=== PATIENT | female | born 1950 | race Caucasian/White ===

== ENCOUNTER 2023-10-30 12:41 | Inpatient (IN) | payer MEDICARE ==
[~2023-10-30] VITALS: Ht 152.4 cm; Wt 59.0 kg
[2023-10-30 13:29] LABS: BASOPHILS % (AUTO) 0.7 % (0.0-2.0); EOSINOPHILS % (AUTO) 0.5 % (0.0-7.0); HEMOGLOBIN 10.5 g/dL (10.9-14.3); LYMPHOCYTES # (AUTO) 1.2 K/uL (0.8-4.8); LYMPHOCYTES % (AUTO) 17.3 % (20.5-51.5); MEAN CORPUSCULAR HEMOGLOBIN 25.9 uug (24.7-32.8); MEAN CORPUSCULAR HGB CONC 33 g/dL (32.3-35.6); MEAN CORPUSCULAR VOLUME 79.3 fL (75.5-95.3); MONOCYTES # (AUTO) 0.4 K/uL (0.1-1.30); MONOCYTES % (AUTO) 5.5 % (0.0-11.0); NEUTROPHILS # (AUTO) 5.1 K/uL (1.8-8.9); PLATELET COUNT (AUTO) 343 K/uL (179-408); RED BLOOD CELL COUNT(AUTO) 4.04 MIL/uL (3.63-4.92); RED CELL DISTRIBUTION WIDTH 16.5 % (12.3-17.7); WHITE BLOOD COUNT (AUTO) 6.8 K/uL (3.8-11.8)
[2023-10-30 13:33] LABS: DIFFERENTIAL COMMENT 1
[2023-10-30 13:50] LABS: ALANINE AMINOTRANSFERASE 11 U/L (14-59); ALBUMIN 3.5 g/dL (3.4-5.0); ALKALINE PHOSPHATASE 133 U/L (50-136); ASPARTATE AMINOTRANSFERASE 11 U/L (15-37); BILIRUBIN,DIRECT 0.1 mg/dL (0.0-0.2); BILIRUBIN,TOTAL 0.5 mg/dL (0.2-1.0); CALCIUM 8.7 mg/dL (8.5-10.1); CARBON DIOXIDE 24 mmol/L (21-32); CHLORIDE 96 mmol/L (98-107); GLUCOSE 110 mg/dL (74-106); NT-PRO BNP 365 pg/mL (0-125); POTASSIUM 4.3 mmol/L (3.5-5.1); SODIUM SERUM 131 mmol/L (136-145); UREA NITROGEN, BLOOD 19 mg/dL (7-18)
[2023-10-30] MEDS ORDERED: ONDANSETRON 4 MG/2 ML VIAL IV PRN (17:15)
[2023-10-30] MEDS ORDERED: MAGNESIUM HYDROXIDE 30 ML LIQUID UDC PO PRN (17:15)
[2023-10-30] MEDS ORDERED: REMEDY ESSENTIAL ZINC PASTE 113 GM TP PRN (17:15)
[2023-10-30] MEDS: SUMATRIPTAN SUCCINATE 50 MG TABLET PO ONE (17:16)
[2023-10-30 20:40] VITALS: BP 155/59; TEMP 98; O2SAT 98
[2023-10-30] MEDS: IV 1/2NS 1000 ML 1,000 ML IV PRN (21:52)
[2023-10-31 00:24] VITALS: BP 148/55; TEMP 98.1; O2SAT 96
[2023-10-31 06:16] VITALS: BP 109/46; TEMP 98.4; O2SAT 98
[2023-10-31 06:33] LABS: BASOPHILS # (AUTO) 0.1 K/UL (0.0-0.2); BASOPHILS % (AUTO) 1.1 % (0.0-2.0); EOSINOPHILS # (AUTO) 0.1 K/uL (0.0-0.7); EOSINOPHILS % (AUTO) 2.5 % (0.0-7.0); HEMATOCRIT 33.6 % (31.2-41.9); HEMOGLOBIN 11.2 g/dL (10.9-14.3); LYMPHOCYTES # (AUTO) 1.3 K/uL (0.8-4.8); LYMPHOCYTES % (AUTO) 22.4 % (20.5-51.5); MEAN CORPUSCULAR HEMOGLOBIN 26.4 uug (24.7-32.8); MEAN CORPUSCULAR HGB CONC 34 g/dL (32.3-35.6); MEAN CORPUSCULAR VOLUME 78.9 fL (75.5-95.3); MONOCYTES # (AUTO) 0.5 K/uL (0.1-1.30); MONOCYTES % (AUTO) 8.9 % (0.0-11.0); NEUTROPHILS # (AUTO) 3.7 K/uL (1.8-8.9); NEUTROPHILS % (AUTO) 65.1 % (38.5-71.5); PLATELET COUNT (AUTO) 362 K/uL (179-408); RED BLOOD CELL COUNT(AUTO) 4.25 MIL/uL (3.63-4.92); RED CELL DISTRIBUTION WIDTH 16.6 % (12.3-17.7); WHITE BLOOD COUNT (AUTO) 5.6 K/uL (3.8-11.8)
[2023-10-31 06:46] LABS: DIFFERENTIAL COMMENT 1
[2023-10-31 06:51] LABS: CALCIUM 8.9 mg/dL (8.5-10.1); MAGNESIUM 2.3 mg/dL (1.8-2.4); PHOSPHOROUS 4.3 mg/dL (2.5-4.9); POTASSIUM 4.2 mmol/L (3.5-5.1); URIC ACID 3.9 mg/dL (2.6-6.0)
[2023-10-31 07:02] LABS: THYROID STIMULATING HORMONE 1.983 mIU/mL (0.358-3.740)
[2023-10-31 07:54] VITALS: BP 106/50; TEMP 98.7; O2SAT 98
[2023-10-31 12:00] VITALS: BP 125/59; TEMP 98.9; O2SAT 98
[2023-10-31] MEDS ORDERED: LOSA25TA27 PO (15:41)
[2023-10-31] MEDS ORDERED: ESCI10TA PO (15:41)
[2023-10-31] MEDS ORDERED: PANT40TA49 PO (15:42)
[2023-10-31 16:12] VITALS: BP 140/78; TEMP 98.2; O2SAT 99
[2023-10-31 20:08] VITALS: BP 145/74; TEMP 98.2; O2SAT 98
[2023-10-31] MEDS: ACETAMINOPHEN 325 MG TABLET PO PRN (21:26)
[2023-11-01 08:00] VITALS: BP 147/69; TEMP 97.9; O2SAT 98
[2023-11-01] MEDS: ESCITALOPRAM OXALATE 10 MG TABLET PO SCH (09:50)
[2023-11-01] MEDS: LOSARTAN POTASSIUM 25 MG TABLET PO SCH (09:50)
[2023-11-01] MEDS: PANTOPRAZOLE SODIUM 40 MG TABLET.DR PO SCH (09:50)
[2023-11-01 12:00] VITALS: BP 129/69; TEMP 97.8; O2SAT 98
== END 2023-11-01 16:35 | DRG 149 ==
LOC: ER 12:41 → TELE3 14:40 → MEDSURG3 10-31 19:00
PROVIDERS: ADMIT Internal Medicine; ATTEND Internal Medicine
DX: H83.09 Labyrinthitis, unspecified ear (principal); E87.1 Hypo-osmolality and hyponatremia; R29.6 Repeated falls; R79.89 Other specified abnormal findings of blood chemistry; H91.10 Presbycusis, unspecified ear; F32.9 Major depressive disorder, single episode, unspecified; K21.9 Gastro-esophageal reflux disease without esophagitis; I10 Essential (primary) hypertension; G31.84 Mild cognitive impairment of uncertain or unknown etiology; E86.1 Hypovolemia; S09.90XA Unspecified injury of head, initial encounter; W18.39XA Other fall on same level, initial encounter; Y92.099 Unspecified place in other non-institutional residence as the place of occurrence of the external cause; D64.9 Anemia, unspecified; H93.19 Tinnitus, unspecified ear
CPT/HCPCS: 36415; 70450; 71045; 72125; 83735; 84100; 84443; 84484; 84550; 85025; 85730; 93005; 93307; 93880; A4606; A4663; G0378

== ENCOUNTER 2023-11-21 20:24 | Inpatient (IN) | payer MEDICARE ==
[~2023-11-21] VITALS: Ht 154.9 cm; Wt 59.0 kg
[~2023-11-21 20:24] MED LIST: ESCI10TA PO; LOSA25TA27 PO; PANT40TA49 PO
[2023-11-21] MEDS ORDERED: NITROGLYCERIN 0.4 MG/TAB BOTTLE SL ONE (20:47)
[2023-11-21] MEDS ORDERED: ACETAMINOPHEN ES 500 MG TABLET ONE (20:47)
[2023-11-21] MEDS: ACETAMINOPHEN ES 500 MG TABLET PO ONE (20:50)
[2023-11-21] MEDS: NITROGLYCERIN 0.4 MG/TAB BOTTLE SL ONE (20:51)
[2023-11-21 21:13] LABS: BASOPHILS # (AUTO) 0.1 K/UL (0.0-0.2); BASOPHILS % (AUTO) 0.8 % (0.0-2.0); EOSINOPHILS # (AUTO) 0.2 K/uL (0.0-0.7); EOSINOPHILS % (AUTO) 2.8 % (0.0-7.0); HEMATOCRIT 32.9 % (31.2-41.9); LYMPHOCYTES # (AUTO) 2.1 K/uL (0.8-4.8); LYMPHOCYTES % (AUTO) 31.1 % (20.5-51.5); MEAN CORPUSCULAR HEMOGLOBIN 25.9 uug (24.7-32.8); MEAN CORPUSCULAR HGB CONC 34 g/dL (32.3-35.6); MEAN CORPUSCULAR VOLUME 77.3 fL (75.5-95.3); MONOCYTES # (AUTO) 0.7 K/uL (0.1-1.30); MONOCYTES % (AUTO) 9.9 % (0.0-11.0); NEUTROPHILS # (AUTO) 3.7 K/uL (1.8-8.9); NEUTROPHILS % (AUTO) 55.4 % (38.5-71.5); PLATELET COUNT (AUTO) 364 K/uL (179-408); RED BLOOD CELL COUNT(AUTO) 4.26 MIL/uL (3.63-4.92); RED CELL DISTRIBUTION WIDTH 16.6 % (12.3-17.7); WHITE BLOOD COUNT (AUTO) 6.6 K/uL (3.8-11.8)
[2023-11-21] MEDS ORDERED: MECL-225 PO (21:13)
[2023-11-21 21:17] LABS: DIFFERENTIAL COMMENT 1
[2023-11-21 21:23] LABS: CARBON DIOXIDE 28 mmol/L (21-32); CHLORIDE 99 mmol/L (98-107); CREATININE 1.3 mg/dL (0.6-1.3); GLUCOSE 131 mg/dL (74-106); SODIUM SERUM 136 mmol/L (136-145); UREA NITROGEN, BLOOD 19 mg/dL (7-18)
[2023-11-21 21:36] LABS: ALANINE AMINOTRANSFERASE 15 U/L (14-59); ALBUMIN 3.3 g/dL (3.4-5.0); ALKALINE PHOSPHATASE 112 U/L (50-136); ASPARTATE AMINOTRANSFERASE 10 U/L (15-37); BILIRUBIN,DIRECT 0.1 mg/dL (0.0-0.2); BILIRUBIN,TOTAL 0.3 mg/dL (0.2-1.0); NT-PRO BNP 194 pg/mL (0-125)
[2023-11-21] MEDS ORDERED: ACETAMINOPHEN 325 MG TABLET PO PRN (23:00)
[2023-11-21] MEDS ORDERED: REMEDY ESSENTIAL ZINC PASTE 113 GM TP PRN (23:00)
[2023-11-21] MEDS ORDERED: ONDANSETRON 4 MG/2 ML VIAL IV PRN (23:00)
[2023-11-21] MEDS ORDERED: MAGNESIUM HYDROXIDE 30 ML LIQUID UDC PO PRN (23:00)
[2023-11-21] MEDS ORDERED: NITROGLYCERIN 0.4 MG/TAB BOTTLE SL PRN (23:00)
[2023-11-22 00:57] VITALS: BP 164/66; TEMP 97.9; O2SAT 99
[2023-11-22] MEDS ORDERED: hydrALAZINE HCL 20 MG/1 ML VIAL IV PRN (01:00)
[2023-11-22] MEDS: MORPHINE SULFATE 2 MG/1 ML DISP.SYRIN IV PRN (01:08)
[2023-11-22 01:40] VITALS: BP 124/62; TEMP 97.9; O2SAT 99
[2023-11-22 04:45] VITALS: BP 111/75; TEMP 98.5; O2SAT 95
[2023-11-22] MEDS ORDERED: NITROGLYCERIN 0.4 MG/TAB BOTTLE SL PRN (05:07)
[2023-11-22] MEDS: PANTOPRAZOLE SODIUM 40 MG TABLET.DR PO SCH (06:09)
[2023-11-22 08:00] VITALS: BP 153/83; TEMP 98.2; O2SAT 98
[2023-11-22 08:08] LABS: BASOPHILS # (AUTO) 0.1 K/UL (0.0-0.2); BASOPHILS % (AUTO) 0.7 % (0.0-2.0); EOSINOPHILS # (AUTO) 0.2 K/uL (0.0-0.7); HEMATOCRIT 32.1 % (31.2-41.9); HEMOGLOBIN 10.8 g/dL (10.9-14.3); LYMPHOCYTES # (AUTO) 1.7 K/uL (0.8-4.8); LYMPHOCYTES % (AUTO) 22.7 % (20.5-51.5); MEAN CORPUSCULAR HGB CONC 34 g/dL (32.3-35.6); MEAN CORPUSCULAR VOLUME 77.1 fL (75.5-95.3); MONOCYTES # (AUTO) 0.6 K/uL (0.1-1.30); MONOCYTES % (AUTO) 7.7 % (0.0-11.0); NEUTROPHILS # (AUTO) 4.9 K/uL (1.8-8.9); NEUTROPHILS % (AUTO) 65.9 % (38.5-71.5); PLATELET COUNT (AUTO) 349 K/uL (179-408); RED BLOOD CELL COUNT(AUTO) 4.16 MIL/uL (3.63-4.92); RED CELL DISTRIBUTION WIDTH 16.6 % (12.3-17.7); WHITE BLOOD COUNT (AUTO) 7.5 K/uL (3.8-11.8)
[2023-11-22 08:29] LABS: DIFFERENTIAL COMMENT 1
[2023-11-22 08:31] LABS: CARBON DIOXIDE 29 mmol/L (21-32); CHLORIDE 103 mmol/L (98-107); CREATININE 1.4 mg/dL (0.6-1.3); GLUCOSE 96 mg/dL (74-106); MAGNESIUM 2.2 mg/dL (1.8-2.4); PHOSPHOROUS 4.4 mg/dL (2.5-4.9); POTASSIUM 4.7 mmol/L (3.5-5.1); SODIUM SERUM 138 mmol/L (136-145); UREA NITROGEN, BLOOD 22 mg/dL (7-18)
[2023-11-22 08:58] LABS: CALCIUM 9.3 mg/dL (8.5-10.1)
[2023-11-22] MEDS: ASPIRIN 81 MG TAB.CHEW PO SCH (08:58)
[2023-11-22] MEDS: ESCITALOPRAM OXALATE 10 MG TABLET PO SCH (08:58)
[2023-11-22] MEDS: LOSARTAN POTASSIUM 25 MG TABLET PO SCH (08:58)
[2023-11-22 11:46] VITALS: BP 139/69; TEMP 97.6; O2SAT 97
[2023-11-22 16:02] VITALS: BP 147/69; TEMP 98.1; O2SAT 97
== END 2023-11-22 19:50 | DRG 313 ==
LOC: ER 20:27 → TELE3 23:57
PROVIDERS: ADMIT Nurse Practitioner Acute Care
DX: R07.89 Other chest pain (principal); N17.9 Acute kidney failure, unspecified; I10 Essential (primary) hypertension; R42 Dizziness and giddiness; K21.9 Gastro-esophageal reflux disease without esophagitis; J32.0 Chronic maxillary sinusitis; F39 Unspecified mood [affective] disorder; Z82.49 Family history of ischemic heart disease and other diseases of the circulatory system; F32.9 Major depressive disorder, single episode, unspecified; Z91.041 Radiographic dye allergy status; Z79.899 Other long term (current) drug therapy
CPT/HCPCS: 36415; 70450; 71045; 83735; 84100; 84484; 85025; 93005; A4606; A4663; A9150; G0378; J2270